=== PATIENT | female | born 1980 | race Two or more races ===

== ENCOUNTER 2016-11-25 12:20 | Emergency (ER) | payer OTHER ==
[2016-11-25 12:26] VITALS: TEMP 99; BMI 29.2
--- NOTE | 2016-11-25 13:00 | PDOC ---
History of Present Illness - General Chief Complaint: Pain Stated Complaint: SWOLLEN BREAST, PAIN, REDDISH Time Seen by Provider: 11/25/16 12:58 History Source: Patient Exam Limitations: No Limitations - History of Present Illness Initial Comments: 11/25/16 14:24 Chief complaint: Right breast tenderness with redness of breast History of present illness: Patient is a 36-year-old female with a history of Lichen Plantus today complaining of right breast mass tenderness with redness and fever yesterday and the day before. Patient reports that she was here on and was treated for a skin infection of her left breast. Patient reports that her Lichen Planus became active of prior to 10/12/2016 with irruption's on her skin on her back, chest, breast b/l a and b/l arms. She does not have any oral lesions or vaginal lesions. Patient has never had a mammogram. Patient was here in 10/12/2016 she had a lump on her right breast that was at 7:00, that has persisted, is not tender,is not erythematous presently, currently patient has a lump with redness at 3:00 on her right breast that is worsened over the last few days. Left breast has an area of erythema with central scab at 9 pm that has resolved and reoccured recently. 11/25/16 15:02 11/25/16 16:13 11/25/16 16:15 11/25/16 16:18 11/25/16 16:20 Timing/Duration: getting worse Severity: moderate Associated Symptoms: reports: fever/chills (yesterday and day prior) Past History - Past Medical History Allergies/Adverse Reactions: Allergies Allergy/AdvReac Type Severity Reaction Status Date / Time No Known Allergies Allergy Verified 11/25/16 12:26 Home Medications: Ambulatory Orders Cephalexin [Keflex] 500 mg PO TID #21 capsule 10/12/16 Acetaminophen [Tylenol] 650 mg PO PRN PRN 10/13/16 Cephalexin [Keflex] 500 mg PO BID #14 capsule 11/25/16 Sulfamethoxazole/Trimethoprim [Bactrim Ds -] 1 tab PO BID #14 tablet 11/25/16 Other medical history: NONE - Psycho/Social/Smoking Cessation Hx Anxiety: No Suicidal Ideation: No Smoking History: Never smoked Hx Alcohol Use: No Drug/Substance Use Hx: No Substance Use Type: None Review of Systems - Review of Systems Able to Perform ROS?: Yes Comments:: 11/25/16 14:31 Breasts: Symmetrical, no nipple discharge or and eversion, area of hyperpigmentation with central scab on left medial breast approximately 6 cm 2 cm at 9:00, right breast mass felt at 7:00 9 cm 5 cm mobile, non tender, non erythematous, left breasts multiple mass 16 cm 11 cm at 7 3 o'clock with erythema of skin with tenderness extends from outer breast inward past nipple on areola. Pt. does not have breast implants. 11/25/16 16:17 11/25/16 16:19 11/25/16 16:22 11/25/16 18:27 Constitutional: No: Symptoms Reported HEENTM: No: Symptoms Reported Respiratory: No: Symptoms reported Cardiac (ROS): No: Symptoms Reported ABD/GI: No: Symptoms Reported : No: Symptoms Reported Musculoskeletal: No: Symptoms Reported Integumentary: Yes: Rash (multiple areas a oval shaped some area hyperpigmented breast, abdomen, back upper arms ) *Physical Exam - Vital Signs Last Vital Signs Temp Pulse Resp BP Pulse Ox 99.0 F 113 H 20 113/38 100 11/25/16 12:23 11/25/16 12:23 11/25/16 12:23 11/25/16 12:23 11/25/16 12:23 - Physical Exam Comments: 11/25/16 15:03 Breasts: Symmetrical, no nipple discharge or and eversion, area of hyperpigmentation with central scab on left medial breast approximately 6 cm 2 cm at 9:00 with central scab non tender erythematous , right breast mass felt at 7:00 9 cm 5 cm mobile, non tender, non erythematous, right breasts mass 16 cm 11 cm with erythema of skin with tenderness extends from outer breast inward past nipple on areola. Pt. does not have breast implants. 11/25/16 16:24 General Appearance: Yes: Appropriately Dressed Respiratory/Chest: positive: Lungs Clear, Normal Breath Sounds. negative: Chest Tender, Respiratory Distress Cardiovascular: positive: Regular Rhythm, Regular Rate, S1, S2 Comments:: 11/25/16 16:16 11/25/16 16:17 Breasts: Symmetrical, no nipple discharge or and eversion, area of hyperpigmentation with slight erythema with central scab on left medial breast approximately 6 cm 2 cm at 9:00, right breast mass felt at 7:00 9 cm 5 cm mobile, non tender, right breast 16 cm 11 cm at 9;00 with erythema of skin with tenderness extends from outer breast inward past nipple on areola. Pt. does not have breast implants. 11/25/16 16:18 11/25/16 18:23 Integumentary: positive: Other (multiple areas oval shaped macules some with hyperpigmented, others slightly erythematous breast, back , abdomen, upper arms b/l dry ) Neurologic: positive: Alert, Responsive Medical Decision Making - Medical Decision Making 11/25/16 16:15 11/25/16 16:18 11/25/16 16:18 Patient is a 36-year-old female with a history of Lichen Plantus today complaining of right breast mass tenderness with redness and fever yesterday and the day before. Patient reports that she was here on 10/12/2016 and was treated for a skin infection of her left breast. Patient reports that her Lichen Planus became active of prior to 10/12/2016 with irruption's on her skin on her back, chest, breast b/l a and b/l arms. She does not have any oral lesions or vaginal lesions. Patient has never had a mammogram. Patient was here in 10/12/2016 she had a lump on her right breast that was at 7:00, that has persisted, is not tender,is erythematous presently, currently patient has a lump with redness at 9:00 on her right breast that is worsened over the last few days. Left breast at 9: 00 area of erythema with central scab since 10/10. right breast Cellulitis with mobile tender mass at 9:00 right breast mass mobile at 7:00 non tender left breast at 9 :00 area of erythema non tender 11/25/16 18:16 transferred to main ED Steffi Aguilera Charge nurse CBC with differential white blood count 10.6, hemoglobin 11.9, hematocrit 35.8, MCV 83.1 RDW is 14.1 platelets 219 neutrophils 81.3 g lactic acid 0.658 CMP glucose 81, BUN 80 creatinine 0.5, sodium 137, potassium 4.3, chloride 101, CO2 26, anion gap 7, calcium 8.3, T protein 7.3, albumin 3.4, SGOT/AST 21 alkaline phosphatase 77 Blood cultures Ultrasound of right breast done 11/25/16 18:16 11/25/16 18:22 11/25/16 18:24 *DC/Admit/Observation/Transfer Diagnosis at time of Disposition: Cellulitis of female breast - Discharge Dispostion Disposition: HOME Condition at time of disposition: Improved - Prescriptions Prescriptions: Sulfamethoxazole/Trimethoprim [Bactrim Ds -] 1 tab PO BID #14 tablet Cephalexin [Keflex] 500 mg PO BID #14 capsule - Referrals Referrals: Cari Meeks MD [Staff Physician] - Call tomorrow - Patient Instructions Printed Discharge Instructions: DI for Cellulitis -- Adult Additional Instructions: Discharge INstructions: -Take antibiotics as prescribed -Follow up with Dr. Meeks by the end of the week. -Return to the ER with any worsening or concerning symptoms Print Language: WELSH
[2016-11-25] MEDS ORDERED: IBUPROFEN 600 MG TABLET (FP) PO ONE (16:04)
--- NOTE | 2016-11-25 17:34 | PDOC ---
*Physical Exam - Vital Signs Last Vital Signs Temp Pulse Resp BP Pulse Ox 99.0 F 113 H 20 113/38 100 11/25/16 12:23 11/25/16 12:23 11/25/16 12:23 11/25/16 12:23 11/25/16 12:23 Medical Decision Making - Medical Decision Making 11/25/16 17:34 Pt seen by the Advanced Practice Provider under my direct supervision Ancillary studies reviewed I agree with plan as outlined by the Advanced Practice Provider DONNA Chiu *DC/Admit/Observation/Transfer Diagnosis at time of Disposition: Cellulitis of female breast - Discharge Dispostion Disposition: HOME Condition at time of disposition: Improved - Prescriptions Prescriptions: Sulfamethoxazole/Trimethoprim [Bactrim Ds -] 1 tab PO BID #14 tablet Cephalexin [Keflex] 500 mg PO BID #14 capsule - Referrals Referrals: Cari Meeks MD [Staff Physician] - Call tomorrow - Patient Instructions Printed Discharge Instructions: DI for Cellulitis -- Adult Additional Instructions: Discharge INstructions: -Take antibiotics as prescribed -Follow up with Dr. Meeks by the end of the week. -Return to the ER with any worsening or concerning symptoms Print Language: MOZAMBICAN
--- NOTE | 2016-11-25 17:54 | CONSULT ---
Consult Consult Specialty:: Surgery Referred by:: ELECTRICAL DESIGNER in ER Reason for Consultation:: Mastitis right breast. - History of Present Illness Chief Complaint: C/O Pain in right breast for 2 days. h/o fever. H/O multiple skin infections all over her abdomen and a skin infection on the medial aspect of her left breast. - History Source History Provided By: Patient, Family Member Limitations to Obtaining History: No Limitations - Past Medical History ...: No - Alcohol/Substance Use Hx Alcohol Use: No - Smoking History Smoking history: Never smoked Home Medications - Allergies Allergies/Adverse Reactions: Allergies Allergy/AdvReac Type Severity Reaction Status Date / Time No Known Allergies Allergy Verified 11/25/16 12:26 - Home Medications Home Medications: Ambulatory Orders Cephalexin [Keflex] 500 mg PO TID #21 capsule 10/12/16 Acetaminophen [Tylenol] 650 mg PO PRN PRN 10/13/16 Physical Exam Vital Signs: Vital Signs Temperature 99.0 F 11/25/16 12:23 Pulse Rate 113 H 11/25/16 12:23 Respiratory Rate 20 11/25/16 12:23 Blood Pressure 113/38 11/25/16 12:23 O2 Sat by Pulse Oximetry (%) 100 11/25/16 12:23 Breast(s): Yes: Other (Left breast , superficial skin infection on upper medial aspect of left breast with ulceration. In the lower , lateral quadrant of the right breast is a 4 cm. firm mass , not very tender with normal , skin. the skin is not red.) Problem List - Problems (1) Acute mastitis of right breast Code(s): N61 - INFLAMMATORY DISORDERS OF BREAST * DO NOT USE * (2) Abscess of skin and subcutaneous tissue Assessment/Plan Mastitis right breast. With 1% lidocaine infiltration, local anesthesia, multiple passes were made with an 18 gauge needle, a few drops of purulent material with blood was obtained , and sent for culture and antibiotic sensitivity. Discharge home with antibiotics , and follow up in my office.
--- NOTE | 2016-11-25 17:55 | PDOC ---
Progress Note - Progress Note Progress Note: I have received report from DIO Salamanca regarding this patient. Pt's initial chief complaint: Right breast pain and swelling Pt's work up completed prior to sign out: none Pt treatment given from prior staff: Ibuprofen Pt plan to be completed: Awaiting consult from Dr. Meeks Dispo: Pending Medical Decision Making - Medical Decision Making A/P: 36 y/o female sent over from [facility] with possible right breast abscess for ?admission/transfer. Waiting on Dr. Meeks call back. Dr. Meeks is in the ER and examines the patient. He performs an aspiration of her abscess at the bedside and a wound culture is sent. He got very scant purulent discharge. He suggests discharge to home with rx for both Keflex and Bactrim. He instructed the patient to f/u with him in his office by the end of the week and return to the ER with any worsening or concerning symptoms. The patient verbalizes understanding of all instructions, has no further questions and is awaiting discharge. *DC/Admit/Observation/Transfer Diagnosis at time of Disposition: Cellulitis of female breast - Discharge Dispostion Disposition: HOME Condition at time of disposition: Improved - Referrals Referrals: Cari Meeks MD [Staff Physician] - Call tomorrow - Patient Instructions Printed Discharge Instructions: DI for Cellulitis -- Adult Additional Instructions: Discharge INstructions: -Take antibiotics as prescribed -Follow up with Dr. Meeks by the end of the week. -Return to the ER with any worsening or concerning symptoms Print Language: KINYARWANDA
[2016-11-25] MEDS ORDERED: SULFAMETHOXAZOLE/TRIMETHOPRIM 800MG/160MG D.S. TABLET PO ONE (18:09)
[2016-11-25] MEDS ORDERED: CEPHALEXIN MONOHYDRATE 500 MG CAPSULE (UD) PO ONE (18:09)
[2016-11-25] MEDS ORDERED: SULFAMETHOXAZOLE/TRIMETHOPRIM 800MG/160MG D.S. TABLET ONE (18:13)
[2016-11-25] MEDS ORDERED: CEPHALEXIN MONOHYDRATE 250 MG CAPSULE (FP) ONE (18:13)
[2016-11-25 18:20] VITALS: BP 108/59; PULSE 108
== END 2016-11-25 18:20 | disposition home or self-care (01) ==
LOC: JERFT 12:20 → JER 12:20
DX: N61.1 Abscess of the breast and nipple (principal)
CPT/HCPCS: 87070; 87205; 99284-25

== ENCOUNTER 2017-08-06 10:21 | Emergency (ER) | payer OTHER ==
[2017-08-06 10:27] VITALS: TEMP 98.7; BMI 29.0
[2017-08-06] MEDS ORDERED: SODIUM CHLORIDE 1,000 ML IV STA (11:17)
[2017-08-06] MEDS ORDERED: KETOROLAC TROMETHAMINE 30 MG/1 ML VIAL IVPUSH ONE (11:17)
[2017-08-06] MEDS ORDERED: KETOROLAC TROMETHAMINE 30 MG/1 ML VIAL ONE (11:28)
[2017-08-06 12:02] LABS: BASOPHIL 0.2 % (0-2.0); EOSINOPHIL 0.9 % (0-4.5); MCH 27.7 pg (25.7-33.7); MEAN CELL VOLUME 84.1 fl (80-96); MEAN PLT VOLUME 9.6 fl (7.5-11.1); NEUTROPHILS 80.4 % (42.8-82.8); PLATELET COUNT 183 K/MM3 (134-434); RDW 14.5 % (11.6-15.6); WHITE BLOOD COUNT 8.9 K/mm3 (4.0-10.0)
--- NOTE | 2017-08-06 12:02 | PDOC ---
History of Present Illness - General Chief Complaint: Pain Stated Complaint: ABD PAIN Time Seen by Provider: 08/06/17 10:44 History Source: Patient Exam Limitations: No Limitations - History of Present Illness Travel History: No Initial Comments: 08/06/17 11:58 36-year-old female presents to the ED with complaints of dysuria and left suprapubic pain since yesterday without fever, chills or nausea. Patient denies irregular menses history of ovarian cyst or GI disorders. Patient denies flank pain and back pain. Patient also denies dyspareunia or history of renal colic. Timing/Duration: reports: constant Quality: reports: mild, cramping Abdominal Pain Onset Location: reports: suprapubic (left) Pain Radiation: denies: no radiation Activities at Onset: denies: none Aggravating Factors: worse with: None Alleviating Factors: worse with: None Past History - Travel Traveled outside of the country in the last 30 days: No Close contact w/someone who was outside of country & ill: No - Past Medical History Allergies/Adverse Reactions: Allergies Allergy/AdvReac Type Severity Reaction Status Date / Time Penicillins Allergy Verified 08/06/17 12:13 Home Medications: Ambulatory Orders NK [No Known Home Medication] 08/06/17 Other medical history: DENIES - Surgical History Appendectomy: Yes - Psycho/Social/Smoking Cessation Hx Anxiety: No Suicidal Ideation: No Smoking History: Never smoked Information on smoking cessation initiated: No Hx Alcohol Use: No Drug/Substance Use Hx: No Substance Use Type: None Patient Lives Alone: No Lives with/in: spouse/SO Review of Systems - Review of Systems Able to Perform ROS?: No Is the patient limited Welsh proficient: No Constitutional: No: Symptoms Reported HEENTM: No: Symptoms Reported ABD/GI: Yes: Abdominal cramping (left lower) : Yes: Dysuria, Frequency. No: Flank Pain Musculoskeletal: No: Symptoms Reported Integumentary: No: Symptoms Reported Neurological: No: Symptoms reported Endocrine: No: Symptoms Reported Hematologic/Lymphatic: No: Symptoms Reported *Physical Exam - Vital Signs Last Vital Signs Temp Pulse Resp BP Pulse Ox 98.7 F 112 H 19 115/64 98 08/06/17 10:26 08/06/17 10:08/06/17 10:08/06/17 10:08/06/17 10:26 - Physical Exam General Appearance: Yes: Nourished, Appropriately Dressed. No: Apparent Distress HEENT: negative: Pale Conjunctivae Respiratory/Chest: positive: Lungs Clear, Normal Breath Sounds. negative: Respiratory Distress, Accessory Muscle Use Cardiovascular: positive: Regular Rhythm, Regular Rate. negative: Murmur Gastrointestinal/Abdominal: positive: Normal Bowel Sounds, Soft, Tenderness ( left suprapubic). negative: Distended, Guarding, Rebound Musculoskeletal: negative: CVA Tenderness Extremity: positive: Normal Capillary Refill Integumentary: positive: Normal Color, Warm. negative: Moist Neurologic: positive: Normal Mood/Affect, Motor Strength 5/5 (ambulatory) ED Treatment Course - LABORATORY CBC & Chemistry Diagram: 08/06/17 11:46 08/06/17 11:46 - Medications Given in the ED: ED Medications Discontinued Medications Generic Name Dose Route Start Last Admin Trade Name Freq PRN Reason Stop Dose Admin Ketorolac Tromethamine 30 mg 08/06/17 11:17 08/06/17 11:30 Toradol Injection - IVPUSH 08/06/17 11:18 30 mg ONCE ONE Administration Medical Decision Making - Medical Decision Making 08/06/17 12:05 Patient complaints of urinary frequency and dysuria for the past 2 days with no other complaints. Patient exam had left suprapubic tenderness along with mild left flank tenderness with no CVA tenderness. 08/06/17 13:56 Laboratory Tests 08/06/17 08/06/17 08/06/17 11:46 11:46 11:46 WBC 8.9 Hgb 12.5 Hct 37.8 Plt Count 183 Neutrophils % 80.4 Sodium 140 Potassium 3.7 Chloride 105 Carbon Dioxide 28 Anion Gap 7 L BUN 8 Creatinine 0.6 Random Glucose 83 AST 11 L Urine Glucose (UA) 1+ H Urine Ketones Negative Urine Blood 1+ H Urine Urobilinogen Negative Urine WBC 108 08/06/17 14:56 Ultrasound shows no evidence of ovarian torsion or adnexal mass. Patient be discharged home with Macrobid. *DC/Admit/Observation/Transfer Diagnosis at time of Disposition: Urinary tract infection Qualifiers: Hematuria presence: without hematuria - Discharge Dispostion Disposition: HOME Condition at time of disposition: Improved - Referrals Referrals: Saira Rushing MD [Primary Care Provider] - - Patient Instructions Printed Discharge Instructions: DI for Urinary Tract Infection (UTI) Additional Instructions: Take antibiotics as prescribed until completed. Please drink plenty of fluids. Please return to ED if symptoms worsen.
[2017-08-06 12:04] VITALS: BP 106/75; PULSE 120
--- NOTE | 2017-08-06 12:49 | PDOC ---
*Physical Exam - Vital Signs Last Vital Signs Temp Pulse Resp BP Pulse Ox 98.7 F 120 H 16 106/75 100 08/06/17 10:26 08/06/17 12:04 08/06/17 12:04 08/06/17 12:04 08/06/17 12:04 ED Treatment Course - LABORATORY CBC & Chemistry Diagram: 08/06/17 11:46 08/06/17 11:46 - ADDITIONAL ORDERS Additional order review: Laboratory Results 08/06/17 11:46 Urine HCG, Qual Negative - Medications Given in the ED: ED Medications Discontinued Medications Generic Name Dose Route Start Last Admin Trade Name Freq PRN Reason Stop Dose Admin Sodium Chloride 1,000 mls @ 1,000 mls/hr 08/06/17 11:17 08/06/17 11:30 Normal Saline - IV 08/06/17 12:16 1,000 mls/hr ASDIR STA Administration Ketorolac Tromethamine 30 mg 08/06/17 11:17 08/06/17 11:30 Toradol Injection - IVPUSH 08/06/17 11:18 30 mg ONCE ONE Administration Medical Decision Making - Medical Decision Making 08/06/17 12:49 Pt seen by the Advanced Practice Provider under my direct supervision Ancillary studies reviewed I agree with plan as outlined by the Advanced Practice Provider DIO Mancini *DC/Admit/Observation/Transfer Diagnosis at time of Disposition: UTI (urinary tract infection) - Discharge Dispostion Disposition: HOME Condition at time of disposition: Improved - Prescriptions Prescriptions: Nitrofurantoin Monohyd/M-Cryst [Macrobid -] 100 mg PO BID #14 capsule - Referrals Referrals: Saira Rushing MD [Primary Care Provider] - - Patient Instructions Printed Discharge Instructions: DI for Urinary Tract Infection (UTI) Additional Instructions: Take antibiotics as prescribed until completed. Please drink plenty of fluids. Please return to ED if symptoms worsen.
[2017-08-06 13:18] LABS: ANION GAP 7 (8-16); CALCIUM 8.6 mg/dL (8.5-10.1); CO2 28 mmol/L (21-32); CREATININE 0.6 mg/dL (0.55-1.02); GLUCOSE,RANDOM 83 mg/dL (74-106); TOT PROT 7.1 g/dl (6.4-8.2)
[2017-08-06 13:19] LABS: ALBUMIN 3.5 g/dl (3.4-5.0); ALK PHOS 65 U/L (45-117); BILIRUBIN,TOTAL 0.9 mg/dL (0.2-1.0); SGOT/AST 11 U/L (15-37); SGPT/ALT 21 U/L (12-78)
[2017-08-06 13:49] LABS: URINE APPEARANCE SLCLOUDY; URINE BILIRUBIN NEGATIVE (NEGATIVE); URINE BLOOD 1+ (NEGATIVE); URINE COLOR YELLOW; URINE GLUCOSE (UA) 1+ (NEGATIVE); URINE KETONE NEGATIVE (NEGATIVE); URINE NITRITE NEGATIVE (NEGATIVE); URINE PROTEIN NEGATIVE (NEGATIVE); URINE UROBILINOGEN NEGATIVE mg/dL (0.2-1.0)
[2017-08-06 13:50] LABS: URINE LEUK ESTERASE 2+ (NEGATIVE)
[2017-08-06 13:55] LABS: URINE BACTERIA MODERATE /hpf (NONE SEEN); URINE MUCUS RARE; URINE RBC 4 /hpf (0-3); URINE WBC 108 /hpf (3-5)
== END 2017-08-06 15:21 | disposition home or self-care (01) ==
LOC: JER 10:21
PROC: 3E0333Z Introduction of Anti-inflammatory into Peripheral Vein, Percutaneous Approach (ICD-10-PCS; principal; 2017-08-06)
DX: N39.0 Urinary tract infection, site not specified (principal)
CPT/HCPCS: 36415; 76856-TC; 80053; 81003; 81015; 84703; 85025; 87086; 87186; 96374; 99285-25

== ENCOUNTER 2018-01-02 11:11 | Emergency (ER) | payer OTHER ==
[2018-01-02 11:25] VITALS: BP 124/87; PULSE 76; TEMP 98.3; BMI 40.7
[2018-01-02] MEDS ORDERED: IBUPROFEN 600 MG TABLET (FP) PO ONE ×2 (13:55→14:03)
--- NOTE | 2018-01-02 14:01 | PDOC ---
History of Present Illness - General Chief Complaint: Pain Stated Complaint: HEADACHE, ABD PAIN Time Seen by Provider: 01/02/18 13:45 History Source: Patient Exam Limitations: No Limitations - History of Present Illness Initial Comments: 01/02/18 mom came for evaluation of headache pain 2 days. States onset of pain was primarily right-sided frontal and behind right eye with mild photophobia. States has had a URI for over 2-3 days without fever and has not noticed any nasal drainage. Hasn't really of headache for migraine diagnoses. No one else at home is ill. Hasn't taken any medication for relief of these symptoms. Occurred: reports: yesterday Severity: reports: mild, moderate Pain Location: reports: face, head Method of Injury: Yes: unknown Modifying Factors: improves with: None Loss of Consciousness: no loss of consciousness Associated Symptoms (Fall): headache (frontal and ethmoid) Past History - Travel Traveled outside of the country in the last 30 days: No Close contact w/someone who was outside of country & ill: No - Past Medical History Allergies/Adverse Reactions: Allergies Allergy/AdvReac Type Severity Reaction Status Date / Time Penicillins Allergy Verified 01/02/18 11:25 Home Medications: Ambulatory Orders Ibuprofen 400 mg PO Q6H PRN #30 tablet 01/02/18 COPD: No Other medical history: DENIES MEDICAL HX - Surgical History Appendectomy: Yes - Suicide/Smoking/Psychosocial Hx Smoking History: Never smoked Hx Alcohol Use: No Drug/Substance Use Hx: No Substance Use Type: None Review of Systems - Review of Systems Able to Perform ROS?: Yes Is the patient limited Irish proficient: Yes Constitutional: Yes: Symptoms Reported, See HPI, Loss of Appetite, Malaise. No : Chills, Fever HEENTM: Yes: See HPI, Eye Pain (with mild photophobia). No: Symptoms Reported Respiratory: Yes: Symptoms reported, See HPI Neurological: Yes: Symptoms reported, See HPI, Headache All Other Systems: Reviewed and Negative *Physical Exam - Vital Signs Last Vital Signs Temp Pulse Resp BP Pulse Ox 98.3 F 76 18 124/87 98 01/02/18 11:23 01/02/18 11:23 01/02/18 11:23 01/02/18 11:23 01/02/18 11:23 - Physical Exam General Appearance: Yes: Nourished, Appropriately Dressed, Apparent Distress, Mild Distress HEENT: positive: RYAN, TMs Normal (ingested but landmarks easily visualized), Nasal Congestion, Rhinorrhea, Sinus Tenderness (tender frontal and ethmoid sinus tenderness. ) Neck: positive: Supple. negative: Tender, Lymphadenopathy (R), Lymphadenopathy (L) Respiratory/Chest: positive: Lungs Clear, Normal Breath Sounds Gastrointestinal/Abdominal: positive: Soft. negative: Tender Extremity: positive: Normal Capillary Refill, Normal Inspection Integumentary: positive: Dry, Warm, Pale Neurologic: positive: college dean II-XII NML intact, Fully Oriented, Alert, Normal Mood/ Affect, Normal Response, Motor Strength 5/5 *DC/Admit/Observation/Transfer Diagnosis at time of Disposition: Sinus headache - Discharge Dispostion Disposition: HOME Condition at time of disposition: Stable Admit: No - Prescriptions Prescriptions: Ibuprofen 400 mg PO Q6H PRN #30 tablet PRN Reason: Pain - Referrals Referrals: Saira Rushing MD [Primary Care Provider] - - Patient Instructions Printed Discharge Instructions: DI for Sinus Headache Additional Instructions: Rest, drink lots of fluids: Teas, water, soups, Pedialyte Saltwater gargles Steamy showers/seem to face break up mucus Avoid contact with others until fevers and cough resolved Lots of handwashing and good hygiene Continue [id number] medications for symptomatic relief Tylenol or Motrin for fever and pain Followup with private physician in one to 2 days as needed Return to emergency department for worsened symptoms, fevers, dehydration - Post Discharge Activity Forms/Work/School Notes: Back to Work
== END 2018-01-02 14:12 | disposition home or self-care (01) ==
LOC: JERFT 11:11
DX: J01.20 Acute ethmoidal sinusitis, unspecified (principal); J01.10 Acute frontal sinusitis, unspecified; R51 Headache
CPT/HCPCS: 99281-25